=== PATIENT | female | born 1985 | race Caucasian/White ===

== ENCOUNTER 2017-12-06 11:28 | Outpatient (CLI) ==
[2015-04-09 09:32] VITALS: BMI 48.7
== END 2017-12-06 11:29 | disposition home or self-care (01) ==
LOC: LAB 11:28
PROVIDERS: ATTEND Nurse Practitioner Women's Health
DX: Z32.00 Encounter for pregnancy test, result unknown (principal)
CPT/HCPCS: 36415; 84702

== ENCOUNTER 2017-12-08 10:28 | Outpatient (CLI) ==
[2015-04-09 09:32] VITALS: BMI 48.7
== END 2017-12-08 10:29 | disposition home or self-care (01) ==
LOC: LAB 10:28
PROVIDERS: ATTEND Nurse Practitioner Women's Health
DX: Z32.00 Encounter for pregnancy test, result unknown (principal)
CPT/HCPCS: 36415; 84702

== ENCOUNTER 2018-06-02 15:13 | Outpatient (CLI) ==
[2015-04-09 09:32] VITALS: BMI 48.7
== END 2018-06-02 15:14 | disposition home or self-care (01) ==
LOC: LAB 15:13
PROVIDERS: ATTEND Registered Nurse
DX: Z36.89 Encounter for other specified antenatal screening (principal); O10.013 Pre-existing essential hypertension complicating pregnancy, third trimester
CPT/HCPCS: 81050; 82575; 84156